=== PATIENT | male | born 1985 | race Caucasian/White ===

== ENCOUNTER 2017-07-19 10:02 | Outpatient (CLI) | payer OTHER ==
[2016-05-24 23:46] VITALS: BP 145/86
== END 2017-07-19 10:03 ==
LOC: LAB 10:02
PROVIDERS: ATTEND Psychiatry & Neurology Psychiatry
DX: R78.71 Abnormal lead level in blood (principal)
CPT/HCPCS: 36415; 82175; 83655; 83825

== ENCOUNTER 2019-06-08 07:12 | Emergency (ER) | payer MEDICAID, OTHER ==
[2019-06-08 07:40] VITALS: BP 142/85
[2019-06-08] MEDS: KETOROLAC TROMETHAMINE 60 MG/2 ML VIAL IM ONE (07:42)
--- NOTE | 2019-06-08 07:55 | ED Physician Documentation ---
General Adult - HISTORIAN Historian: patient - HPI Stated Complaint: right neck, right rib and back pain Chief Complaint: Neck Pain Onset: other (chronic ) Timing: still present Severity: moderate Further Comments: yes (He is seeing pain management and he "is out and I cant call because my took me off my phone plan" . He denies any new neck or back injury. He states he sees pain management.) - ROS CONST: no problems EYES/ENT: none MS/SKIN/LYMPH: none - PAST HX Past History: other (chronic pain ) Immunizations: UTD Allergies/Adverse Reactions: Allergies Allergy/AdvReac Type Severity Reaction Status Date / Time diphenhydramine HCl Allergy Verified 05/24/16 23:45 [From Benadryl] hydromorphone HCl Allergy Verified 05/24/16 23:45 [From Dilaudid] lamotrigine [From Lamictal] Allergy Verified 06/08/19 07:30 Penicillins Allergy Verified 05/24/16 23:45 Home Medications: Ambulatory Orders Medication Instructions Recorded Duloxetine HCl [Cymbalta] 60 mg PO DAILY 04/27/16 Methocarbamol [Robaxin-750] 750 mg PO Q4 04/27/16 Celecoxib [Celebrex] 200 mg PO DAILY 06/08/19 Hydroxyzine Pamoate [Vistaril] 100 mg PO BID PRN 06/08/19 Prazosin HCl 3 mg PO HS 06/08/19 RX: Gabapentin [Neurontin] 600 mg PO TID 06/08/19 - SOCIAL HX Smoking History: non-smoker Alcohol Use: none Drug Use: none - FAMILY HX Family History: No - VITAL SIGNS Vital Signs: Vital Signs Temp Pulse Resp BP Pulse Ox 97.4 F L 74 20 142/85 100 06/08/19 07:36 06/08/19 07:36 06/08/19 07:36 06/08/19 07:36 06/08/19 07:36 - REVIEWED ASSESSMENTS Nursing Assessment Reviewed: Yes Vitals Reviewed: Yes Progress - Progress Progress: Referral to pain management DG ED Results Lab/Radiology - Orders Orders: ED Orders Category Date Time Status Ketorolac Tromethamine [Toradol] Med 06/08/19 07:32 Discontinued 60 mg IM NOW ONE General Adult Physical Exam - PHYSICAL EXAM GENERAL APPEARANCE: no distress EENT: eye inspection normal, no signs of dehydration NECK: normal inspection. No: stiff neck RESPIRATORY: no resp distress, chest non-tender, breath sounds normal CVS: reg rate & rhythm, heart sounds normal, equal pulses, no murmur ABDOMEN: soft, no distension BACK: normal inspection SKIN: warm/dry, normal color EXTREMITIES: non-tender NEURO: oriented X3 Discharge Clincal Impression: Chronic pain Qualifiers: Chronic pain type: other chronic pain Qualified Code(s): G89.29 - Other chronic pain Referrals: ROXANA MAHAJAN [Primary Care Provider] - 2 Days Comments: 1. Toradol 10 mg take 1 by mouth every 12 hours as needed for pain 2. FOLLOW UP WITH YOUR pain management Dr 3. Return to ER for any increasing concerns Condition: Stable Disposition: 01 HOME, SELF-CARE Decision to Admit: NO Date of Decison to Admit: 06/08/19 Decision Time: 08:12
== END 2019-06-08 08:10 | disposition home or self-care (01) ==
LOC: ED 07:12
DX: M54.2 Cervicalgia (principal); G89.29 Other chronic pain
CPT/HCPCS: 96372; 99283; 99284; J1885

== ENCOUNTER 2019-06-23 09:50 | Emergency (ER) | payer OTHER ==
[2019-06-23] MEDS ORDERED: KETOROLAC TROMETHAMINE 60 MG/2 ML VIAL IM ONE (09:59)
[2019-06-23] MEDS ORDERED: methylPREDNISolone SOD SUCC 125 MG/2 ML VIAL ONE (09:59)
== END 2019-06-23 10:11 | disposition home or self-care (01) ==
LOC: ED 09:50
DX: M54.9 Dorsalgia, unspecified (principal); G89.29 Other chronic pain
CPT/HCPCS: 96372; 99284; J1885; J2930

== ENCOUNTER 2019-07-02 15:40 | Emergency (ER) | payer OTHER ==
--- NOTE | 2019-07-02 15:59 | ED Physician Documentation ---
Fall - HISTORIAN Historian: patient - HPI Stated Complaint: head and neck pain Chief Complaint: General Adult Onset: just prior to arrival, other Context: other (hit head on frontal forehead on a beam on the porch ) Associated Symptoms:: brief (seconds) Location of Pain/Injury: head, neck Injury to Right Extremity: none Injury to Left Extremity: none Further Comments: yes (he states he has some chronic neck issues - reports today he was walking off the porch and hit his head (frontal) on the beam and it knocked him back he is not sure if he blacked out but "I always black out when I hit my head hard" He is wearing sunglasses due to the light.) - ROS CONST: no problems - PAST HX Past History: other (chronic pain ) Allergies/Adverse Reactions: Allergies Allergy/AdvReac Type Severity Reaction Status Date / Time diphenhydramine HCl Allergy Verified 07/02/19 15:59 [From Benadryl] hydromorphone HCl Allergy Verified 07/02/19 15:59 [From Dilaudid] lamotrigine [From Lamictal] Allergy Verified 07/02/19 15:59 Penicillins Allergy Verified 07/02/19 15:59 Home Medications: Ambulatory Orders Medication Instructions Recorded Duloxetine HCl [Cymbalta] 60 mg PO DAILY 04/27/16 Methocarbamol [Robaxin-750] 750 mg PO Q4 04/27/16 Celecoxib [Celebrex] 200 mg PO DAILY 06/08/19 Gabapentin [Neurontin] 600 mg PO TID 06/08/19 Hydroxyzine Pamoate [Vistaril] 100 mg PO BID PRN 06/08/19 Prazosin HCl 3 mg PO HS 06/08/19 Baclofen 10 mg PO DAILY 07/02/19 Cetirizine HCl [Wal-Zyr] 10 mg PO DAILY 07/02/19 Montelukast Sodium [Singulair] 10 mg PO DAILY 07/02/19 - SOCIAL HX Smoking History: non-smoker Alcohol Use: occasionally Drug Use: marijuana - FAMILY HX Family History: none - VITAL SIGNS Vital Signs: Vital Signs Temp Pulse Resp BP Pulse Ox 98.0 F 105 H 18 133/94 97 07/02/19 15:48 07/02/19 15:48 07/02/19 15:48 07/02/19 15:48 07/02/19 15:48 - REVIEWED ASSESSMENTS Nursing Assessment Reviewed: Yes Vitals Reviewed: Yes ED Results Lab/Radiology - Radiology Radiology Impressions: T Brain without contrast History:HIT HEAD TODAY (Hx) Technique: Standard noncontrast CT was performed with contiguous axial images acquired from skull base to vertex. Findings: There is no acute extra-axial fluid collection. Ventricles are of normal size, shape, and morphology. No mass effect or midline shift is present. No evidence of acute hemorrhage. The polanco-white matter differentiation is normal. The visualized portions of the orbits, mastoids are normal. No fractures are identified.Small amount of fluid is seen in the right maxillary sinus. Impression: 1. No acute intracranial injury. Electronically signed on Jul 02, 2019 4:16:44 PM CDT by: Shabbir Fischer CT cervical spine without contrast. History: Neck pain after fall Technique: Transaxial computed tomography images of the cervical spine were obtained without the use of intravenous contrast according to standard protocol. Findings: Examination is limited due to shoulder artifact degrades the images. The vertebral body heights and vertebral body alignments are normal. No evidence of acute fracture. The odontoid process is intact. No significant intervertebral disc space narrowing degenerative change. There is no paravertebral soft tissue swelling. Impression: 1. No acute osseous abnormality. Electronically signed on Jul 02, 2019 4:18:13 PM CDT by: Shabbir Fischer - Orders Orders: ED Orders Category Date Time Status CT BRAIN W/O CONTRAST Stat Exams 07/02/[address] NECK WITHOUT [CT C-SPINE W/O CONTRAST] Stat Exams 07/02/19 Ordered Fall Physical Exam - Physical Exam General Appearance: no acute distress, alert Head: non-tender, no swelling (there is no indication of injury on head/scalp or forehead ) Neck: non-tender, painless ROM Eye: JUDAH ENT: nml external inspection Resp/CVS: chest non-tender, breath sounds nml, no resp. distress, heart sounds nml Abdomen: soft Neuro: oriented x3 Skin: color nml, other Extremities: atraumatic Joint: joints nml - [place] Coma Score Eyes Open: Spontaneous Speech: Oriented Motor: Obeys Commands Discharge Clincal Impression: Fall Qualifiers: Encounter type: initial encounter Qualified Code(s): W19.XXXA - Unspecified fall, initial encounter Referrals: Primary Doctor,No [Primary Care Provider] - 2 Days Comments: 1. Continue meds 2. OTC meds as directed as needed for symptom management 3. Follow up with PCP in 2 days 4. Return to ER for any increased concerns Condition: Stable Disposition: 01 HOME, SELF-CARE Decision to Admit: NO Date of Decison to Admit: 07/02/19 Decision Time: 16:38
--- NOTE | 2019-07-02 16:20 | Diagnostic Imaging Report ---
PATIENT MR#: [id number] PATIENT PATIENT NAME: UMM OCAMPO DATE OF : 1985 REFERRING PHYSICIAN: Stefanie Can EXAM DATE: 07/02/2019 ACCESSION NUMBER: [id number] EXAM DESCRIPTION: CT BRAIN W/O CONTRAST CT Brain without contrast History:HIT HEAD TODAY (Hx) Technique: Standard noncontrast CT was performed with contiguous axial images acquired from skull bas e to vertex. Findings: There is no acute extra-axial fluid collection. Ventricles are of normal size, shape, and morphology. No mass effect or midline shift is present. No evidence of acute hemorrhage. The polanco-white matter differentiation is n ormal. The visualized portions of the orbits, mastoids are normal. No fractures are identified.Small amount of f luid is seen in the right maxillary sinus. Impression: 1. No acute intracranial injury. Read by: Dr. Shabbir Fischer Transcribed by: Transcribed Date: Electronically signed by: Dr. Shabbir Fischer Date signed: 07/02/2019 4:19:46 PM
[2019-07-02] MEDS ORDERED: KETOROLAC TROMETHAMINE 60 MG/2 ML VIAL IM ONE (16:21)
--- NOTE | 2019-07-02 16:22 | Diagnostic Imaging Report ---
PATIENT MR#: [id number] PATIENT PATIENT NAME: UMM OCAMPO DATE OF : 1985 REFERRING PHYSICIAN: Stefanie Can EXAM DATE: 07/02/2019 ACCESSION NUMBER: [id number] EXAM DESCRIPTION: CT C-SPINE W/O CONTRAS CT cervical spine without contrast. History: Neck pain after fall Technique: Transaxial computed tomography images of the cervical spine were obtained without the use of intravenous contrast according to standard protocol. Findings: Examination is limited due to shoulder artifact degrades the images. The vertebral body heights and vertebral body alignments are normal. No evidence of acute fracture. The odontoid process is intact. No significant intervertebral disc space narrowing degenerative change. There is no paravertebral soft tissue swelling. Impression: 1. No acute osseous abnormality. Read by: Dr. Shabbir Fischer Transcribed by: Transcribed Date: Electronically signed by: Dr. Shabbir Fischer Date signed: 07/02/2019 4:21:46 PM
[2019-07-02 16:48] VITALS: BP 152/75
== END 2019-07-02 16:40 | disposition home or self-care (01) ==
LOC: ED 15:40
DX: M54.2 Cervicalgia (principal); R51 Headache; W19.XXXA Unspecified fall, initial encounter
CPT/HCPCS: 70450; 72125; 96372; 99282; 99284; J1885

== ENCOUNTER 2019-08-03 02:25 | Emergency (ER) | payer OTHER ==
[2019-08-03] MEDS ORDERED: 0.9 % SODIUM CHLORIDE 1,000 ML IV ONE ×5 (02:34→03:03)
--- NOTE | 2019-08-03 02:48 | ED Physician Documentation ---
General Adult - HISTORIAN Historian: patient - HPI Stated Complaint: intoxicated Chief Complaint: General Adult Additional Information: Patient presents to ED via EMS after police found him laying in the middle of the street intoxicated. Patient states he is cold and wet but other than that he has not complaints. Patient states, "I have had a lot to drink". Onset: hours (1) Timing: still present Severity: moderate - ROS CONST: no problems EYES/ENT: none CVS/RESP: denies: chest pain, shortness of breath GI/: denies: vomiting, nausea MS/SKIN/LYMPH: none NEURO/PSYCH: denies: headache - PAST HX Past History: other (asthma) Other History: none, other (depression, anxiety) Surgeries/Procedures: none Allergies/Adverse Reactions: Allergies Allergy/AdvReac Type Severity Reaction Status Date / Time diphenhydramine HCl Allergy Verified 08/03/19 02:50 [From Benadryl] hydromorphone HCl Allergy Verified 08/03/19 02:50 [From Dilaudid] lamotrigine [From Lamictal] Allergy Verified 08/03/19 02:50 Penicillins Allergy Verified 08/03/19 02:50 Home Medications: Ambulatory Orders Medication Instructions Recorded Duloxetine HCl [Cymbalta] 60 mg PO DAILY 04/27/16 Methocarbamol [Robaxin-750] 750 mg PO Q4 04/27/16 Celecoxib [Celebrex] 200 mg PO DAILY 06/08/19 Gabapentin [Neurontin] 600 mg PO TID 06/08/19 Hydroxyzine Pamoate [Vistaril] 100 mg PO BID PRN 06/08/19 Prazosin HCl 3 mg PO HS 06/08/19 Baclofen 10 mg PO DAILY 07/02/19 Cetirizine HCl [Wal-Zyr] 10 mg PO DAILY 07/02/19 Montelukast Sodium [Singulair] 10 mg PO DAILY 07/02/19 - SOCIAL HX Smoking History: non-smoker Alcohol Use: heavy Drug Use: none - FAMILY HX Family History: No - VITAL SIGNS Vital Signs: Vital Signs Temp Pulse Resp BP Pulse Ox 152/75 07/02/19 16:45 - REVIEWED ASSESSMENTS Nursing Assessment Reviewed: Yes Vitals Reviewed: Yes ED Results Lab/Radiology - Lab Results Lab Results: UDS - positive for marijuana - Orders Orders: ED Orders Category Date Time Status 0.9 % Sodium Chloride [Normal Saline] 1,000 ml Med 08/03/19 02:34 Discontinued IV .STK-MED General Adult Physical Exam - PHYSICAL EXAM GENERAL APPEARANCE: no distress EENT: JUDAH NECK: supple RESPIRATORY: no resp distress, chest non-tender, breath sounds normal CVS: reg rate & rhythm, heart sounds normal ABDOMEN: soft, normal bowel sounds, non-tender BACK: normal inspection SKIN: warm/dry, normal color EXTREMITIES: non-tender, no evidence of injury, no edema NEURO: speech/cognition abnml (slurred speech). No: facial droop Discharge Clincal Impression: Alcohol intoxication Qualifiers: Complication of substance-induced condition: uncomplicated Qualified Code(s): F10.920 - Alcohol use, unspecified with intoxication, uncomplicated Referrals: Primary Doctor,No [Primary Care Provider] - 2 Days Additional Instructions: 1. Avoid alcohol and marijuana 2. Drink plenty of fluids to maintain proper hydration 3. Resume home medications as previously prescribed 4. Follow up with PCP within 1 week 5. Return to ER for new or worsening symptoms Condition: Stable Disposition: 01 HOME, SELF-CARE Decision to Admit: NO Date of Decison to Admit: 08/03/19 Decision Time: 05:30
[2019-08-03] MEDS ORDERED: FOLIC ACID 5 MG/1 ML IV ONE (02:50)
[2019-08-03] MEDS ORDERED: THIAMINE HCL 200 MG/2 ML VIAL IV ONE (02:50)
[2019-08-03] MEDS ORDERED: THIAMINE HCL 100 MG, MULTIVIT INFUSN,ADULT 1,VIT K 10 ML, FOLIC ACID 5 MG in 0.9 % SODI... IV ONE (02:50)
[2019-08-03] MEDS ORDERED: MULTIVIT INFUSN,ADULT 1,VIT K 10 ML VIAL IV ONE ×2 (02:50→03:04)
[2019-08-03] MEDS ORDERED: THIAMINE HCL 200 MG/2 ML VIAL ONE (03:03)
[2019-08-03] MEDS ORDERED: FOLIC ACID 5 MG/1 ML ONE (03:03)
[2019-08-03 05:57] VITALS: BP 105/68
[2019-08-03 06:10] LABS: CANNABINOIDS NON NEGATIVE ng/mL (< 50); METHYLENEDIOXYMETHAMPHETAMINE NEGATIVE ng/mL (<500)
[2019-08-03 06:38] LABS: BASOPHILS % 0.5 % (0.0-1.5); NEUTROPHILS # 5.7 # k/uL (1.4-7.7); eGFR (Non-African) > 60
== END 2019-08-03 05:30 | disposition home or self-care (01) ==
LOC: ED 02:25
DX: F10.920 Alcohol use, unspecified with intoxication, uncomplicated (principal); Y90.9 Presence of alcohol in blood, level not specified
CPT/HCPCS: 80053; 80320; 80377; 85025; 96360; 96361; 99282; 99284; J3411; J3490; G0480; G0481; J7030; S1016